=== PATIENT | female | born 1960 | race Caucasian/White ===

== ENCOUNTER 2020-11-14 09:59 | Emergency (ER) | payer OTHER, SELFPAY ==
--- NOTE | ~2020-11-14 | CT_ITS ---
EXAMINATION: CT ABDOMEN AND PELVIS WITH CONTRAST CLINICAL INFORMATION: Abdominal pain, diarrhea, rule out colitis COMPARISON: None TECHNIQUE: Multidetector volumetric images were obtained from the superior aspect of the liver through the pubic symphysis following administration 85 mL of Omnipaque 350 intravenous contrast. Sagittal and coronal reformatted images were obtained on the technologist's workstation. Oral contrast: No This CT examination was performed using dose optimization techniques as appropriate, variously including the following: *Automated exposure control *Adjustment of mA and/or kV according to patient size (this includes techniques or standardized protocols for targeted exams where dose is matched to indication/reason for exam; i.e. extremities or head) *Use of iterative reconstruction technique DLP: 621 mGy-cm FINDINGS: LUNG BASES: The visualized lung bases are unremarkable. Partial visualization of bilateral breast prostheses without abnormality. LIVER, GALLBLADDER, AND BILIARY TREE: Unremarkable. PANCREAS: Unremarkable. SPLEEN: Unremarkable. ADRENAL GLANDS: Unremarkable. KIDNEYS AND URETERS: The kidneys are normal in size, shape, and attenuation. No hydronephrosis, hydroureter, or calculi seen. No perinephric stranding. BLADDER: Unremarkable. GASTROINTESTINAL TRACT: The stomach, duodenum, jejunum as well as the proximal to mid ileum are unremarkable. Abnormal mural thickening is seen in the distal ileum extending into the terminal ileum. A hostess party sales representative loop shows mural thickening up to 0.8 cm (image 55, series 4). Mural thickening is seen in the terminal ileum just proximal to the ileocecal valve measuring 0.9 cm (image 40, series 4). Mild mural thickening extends into the adjacent cecum and ascending colon. This is seen to a lesser extent in the transverse colon. The remainder the colon is unremarkable distally to the rectum. ABDOMINAL WALL: No significant hernia is appreciated. LYMPH NODES: Mildly enlarged mesenteric and retroperitoneal lymph nodes are seen in hostess party sales representative ileocolic lymph node measures 1.1 cm (image 42, series 4). A superior mesenteric lymph node measures 0.9 cm in short axis (image 39, series 4). A left renal perinephric lymph node measures 0.9 cm in short axis (image 43, series 4). VASCULAR: Unremarkable. PELVIC VISCERA: The uterus and right ovary are unremarkable. A small fluid attenuation left ovarian cyst measures 1.1 cm (image 48, series 4). OSSEOUS STRUCTURES: L5-S1 mild degenerative disc disease. CT/CT abdomen pelvis w con IMPRESSION: No significant abnormality.
[2020-11-14 11:40] VITALS: BP 119/68; PULSE 104; RESP 18; TEMP 36.6; O2SAT 99; BMI 25.6
[2020-11-14 12:15] LABS: COVID-19 Test Negative (Negative); IDNOW Serial# 9DD0AD1C
--- NOTE | 2020-11-14 13:16 | ED.NAVMDI ---
HPI - Nausea/Vomiting/Diarrhea General Chief complaint: Nausea/Vomiting/Diarrhea Stated complaint: Flu like symptoms Time Seen by Provider: 11/14/20 13:16 Source: patient Mode of arrival: ambulatory Limitations: no limitations History of Present Illness MD elicited complaint: nausea, vomiting, diarrhea and abdominal pain Onset (ago): day(s) (7) Description of vomiting: food contents Associated nausea: Yes Associated abdominal pain: Yes Location of pain: diffuse Radiation: diffuse Pain consistency: intermittent Severity: mild Quality: cramping Exacerbating factors: eating Relieving factors: none Context: possible food poisoning Associated symptoms: fever/chills, loss of appetite, malaise, nausea/vomiting and weakness Related Data Previous Rx's Medication Instructions Recorded ondansetron 4 mg disintegrating 4 mg PO Q8H PRN #20 tab 11/14/20 tablet Allergies Allergy/AdvReac Type Severity Reaction Status Date / Time No Known Allergies Allergy Verified 11/14/20 11:39 Review of Systems Review of Systems: Constitutional : No Weight loss, pos Fever, pos Chills ENT/Mouth : No sore throat, No Rhinorrhea Eyes: No Swelling, No Redness Cardiovascular : No Chest Pain, No SOB, No Edema Respiratory : No Cough, No Sputum, No Wheezing Gastrointestinal : Positive Nausea, Positive Vomiting, positive Diarrhea, positive abdominal Pain, No Hematochezia, No Melena Genitourinary : No Dysuria, No Urinary Frequency, No Hematuria, No Urgency Musculoskeletal : No joint pain, No Myalgias, No Joint Swelling Skin : No Skin Lesions, No rash Neuro : No Weakness, No Numbness, No Dizziness, No Headache Psych : No Anxiety/Panic, No Depression Heme/Lymph: No Bruising, No Lymphadenopathy Endocrine : No Polyuria, No Polydipsia All other systems reviewed and are negative. Gastrointestinal: Gastrointestinal: Reports nausea PMFSH Past Medical History Attestation statement: The following information was validated with the patient. Medical History Afib Breast cancer FH: mastectomy Surgical History History of cardiac radiofrequency ablation Social History Social History (Updated 11/14/20 @ 13:47 by Judith Quinteros DO) Patient Tobacco Use Status: Never used Tobacco Use of substances other than those prescribed or required for medical reasons: No Advance Directives: Yes Advance Directives Information Provided: Yes Advance Directives on File: No Patient : No Physical Exam Vital Signs: Vital Signs: Last Vital Signs Temp 97.9 F 11/14/20 11:40 Pulse 104 H 11/14/20 11:40 Resp 18 11/14/20 11:40 BP 119/68 11/14/20 11:40 Pulse Ox 99 11/14/20 11:40 Body Mass Index 25.6 Appearance: Alert. Oriented X3. No acute distress. Eyes: Pupils equal, round and reactive to light. ENT: Pharynx normal. Neck: Normal inspection. Neck supple. CVS: Normal heart rate and rhythm. Pulses normal. Respiratory: No respiratory distress. Breath sounds normal. Abdomen: Soft and diffuse ttp no rebound or guarding Skin: Skin warm and dry. Normal skin color. Normal skin turgor. Extremities: No lower extremity edema. No calf ttp Neuro: Oriented X 3. No motor deficit. No sensory deficit. Course Course Course Narrative: labs stable, CT scan negative, tolerating PO can be DC home MDM - Nausea/Vomiting/Diarrhea MDM Narrative Medical decision making narrative: 60 yo female prior history of breast cancer in remission comes in with c/o abdominal pain n/v/d no abx did eat seafood recently no sick contact, no hx of colitis at this time lab, IVF, CT scan for colitis ordered, dispo per results and findings. Lab Data Result diagrams: 11/14/20 13:31 11/14/20 13:31 Labs: Lab Results 11/14/20 11/14/20 11/14/20 Range/Units 11:46 13:31 13:31 WBC 7.3 (4.8-10.8) X10*3/uL RBC 5.08 (4.20-5.50) X10*6/uL Hgb 14.3 (12.0-16.0) g/dl Hct 43.3 (37-47) % MCV 85.2 (80-98) fL MCH 28.1 (27.0-33.0) pg MCHC 33.0 (31.0-35.0) g/dl RDW 12.4 (11.0-16.0) % Plt Count 243 (160-400) X10*3/uL MPV 10.7 (9.4-12.3) fL Immature Gran % (Auto) 0.7 H (0.0-0.4) % Neut % (Auto) 55.9 (45-73) % Lymph % (Auto) 27.7 (20-40) % [place] % (Auto) 14.9 H (2-11) % Eos % (Auto) 0.3 (0-4) % Baso % (Auto) 0.5 (0-2) % Lymph # (Auto) 2.0 (1.2-4.9) X10*3/uL [place] # (Auto) 1.1 (0.1-1.2) X10*3/uL Eos # (Auto) 0.0 (0.0-0.4) X10*3/uL Baso # (Auto) 0.0 (0.0-0.2) X10*3/uL Abs Immat Gran (auto) 0.05 H (0.00-0.03) X10*3/uL Absolute Neuts (auto) 4.1 (2.0-8.3) X10*3/uL Absolute Nucleated RBC 0.000 (0.0-0.012) X10*3/uL Nucleated RBC % (auto) 0.0 (0.0-0.2) /100WBC Sodium 137 (135-145) mmol/L Potassium 4.5 (3.3-5.1) mmol/L Chloride 102 (96-108) mmol/L Carbon Dioxide 24 (22-29) mmol/L Anion Gap 16 (12-20) BUN 13 (9-16) mg/dL Creatinine 0.73 (0.5-1.4) mg/dL Estim Creat Clear Calc 71.7 Estimated GFR > 60 Random Glucose 94 (60-115) mg/dL Lactic Acid (0.5-2.0) mmol/L Calcium 10.0 (8.4-10.2) mg/dL Magnesium 2.3 (1.6-2.6) mg/dL Total Bilirubin 0.4 (0.0-1.0) mg/dL Direct Bilirubin 0.2 (0.0-0.5) mg/dL AST 15 (5-31) U/L ALT 16 (0-31) U/L Alkaline Phosphatase 55 (39-117) U/L Total Protein 7.0 (6.5-8.0) g/dL Albumin 4.0 (3.5-5.0) g/dL Lipase 67 (8-78) U/L Urine Color Urine Appearance Urine pH (5.0-8.0) Ur Specific [place] (1.005-1.025) Urine Protein (NEG-TRACE) MG/DL Urine Glucose (UA) (NEG) MG/DL Urine Ketones (NEG) MG/DL Urine Blood (NEG) Urine Nitrite (NEG) Ur Leukocyte Esterase (NEG) COVID-19 (TWAN) Negative (Negative) COVID-19 Clin Com See Note 11/14/20 11/14/20 Range/Units 13:31 14:13 WBC (4.8-10.8) X10*3/uL RBC (4.20-5.50) X10*6/uL Hgb (12.0-16.0) g/dl Hct (37-47) % MCV (80-98) fL MCH (27.0-33.0) pg MCHC (31.0-35.0) g/dl RDW (11.0-16.0) % Plt Count (160-400) X10*3/uL MPV (9.4-12.3) fL Immature Gran % (Auto) (0.0-0.4) % Neut % (Auto) (45-73) % Lymph % (Auto) (20-40) % [place] % (Auto) (2-11) % Eos % (Auto) (0-4) % Baso % (Auto) (0-2) % Lymph # (Auto) (1.2-4.9) X10*3/uL [place] # (Auto) (0.1-1.2) X10*3/uL Eos # (Auto) (0.0-0.4) X10*3/uL Baso # (Auto) (0.0-0.2) X10*3/uL Abs Immat Gran (auto) (0.00-0.03) X10*3/uL Absolute Neuts (auto) (2.0-8.3) X10*3/uL Absolute Nucleated RBC (0.0-0.012) X10*3/uL Nucleated RBC % (auto) (0.0-0.2) /100WBC Sodium (135-145) mmol/L Potassium (3.3-5.1) mmol/L Chloride (96-108) mmol/L Carbon Dioxide (22-29) mmol/L Anion Gap (12-20) BUN (9-16) mg/dL Creatinine (0.5-1.4) mg/dL Estim Creat Clear Calc Estimated GFR Random Glucose (60-115) mg/dL Lactic Acid 1.8 (0.5-2.0) mmol/L Calcium (8.4-10.2) mg/dL Magnesium (1.6-2.6) mg/dL Total Bilirubin (0.0-1.0) mg/dL Direct Bilirubin (0.0-0.5) mg/dL AST (5-31) U/L ALT (0-31) U/L Alkaline Phosphatase (39-117) U/L Total Protein (6.5-8.0) g/dL Albumin (3.5-5.0) g/dL Lipase (8-78) U/L Urine Color YELLOW Urine Appearance CLEAR Urine pH 6.0 (5.0-8.0) Ur Specific [place] 1.020 (1.005-1.025) Urine Protein NEG (NEG-TRACE) MG/DL Urine Glucose (UA) NEG (NEG) MG/DL Urine Ketones 5 (NEG) MG/DL Urine Blood NEG (NEG) Urine Nitrite NEG (NEG) Ur Leukocyte Esterase NEG (NEG) COVID-19 (TWAN) (Negative) COVID-19 Clin Com Discharge Plan Discharge Clinical Impression: Diarrhea Qualifiers: Diarrhea type: unspecified type Qualified Code(s): R19.7 - Diarrhea, unspecified Patient Disposition: Home, Self-Care Instructions: Loperamide (By mouth), Acute Diarrhea (ED) Additional Instructions: return to ED for any worsening symptoms or concerns LYMPH NODES: Mildly enlarged mesenteric and retroperitoneal lymph nodes are seen in sales representative cash registers ileocolic lymph node measures 1.1 cm (image 42, series 4). A superior mesenteric lymph node measures 0.9 cm in short axis (image 39, series 4). A left renal perinephric lymph node measures 0.9 cm in short axis (image 43, series 4). VASCULAR: Unremarkable. PELVIC VISCERA: The uterus and right ovary are unremarkable. A small fluid attenuation left ovarian cyst measures 1.1 cm (image 48, series 4).? OSSEOUS STRUCTURES: L5-S1 mild degenerative disc disease.? CT/CT abdomen pelvis w con IMPRESSION: No significant abnormality. ? COVID NEGATIVE LABS normal urine normal it is okay to take immodium Prescriptions: New ondansetron 4 mg tablet,disintegrating 4 mg PO Q8H PRN (Reason: nausea and vomiting) Qty: 20 RF: 0 Referrals: Physician,Unknown [Primary Care Provider] - 2 days (if not better call primary care doctor may need stool studies) Stand Alone Forms: Work/School Release Interventions: ED Discharge Assessment Last Done: 11/14/20 16:01 Discharge Date/Time: 11/14/20 16:03
[2020-11-14 13:39] LABS: MANUAL DIFF FLAG NO
[2020-11-14 13:41] LABS: Basophils Percent Auto 0.5 % (0-2); Eosinophils Percent Auto 0.3 % (0-4); Hematocrit 43.3 % (37-47); Hemoglobin 14.3 g/dl (12.0-16.0); Imm Gran Abs Auto 0.05 X10*3/uL (0.00-0.03); Imm Gran Pct Auto 0.7 % (0.0-0.4); Lymphocytes Percent Auto 27.7 % (20-40); Mean Corpuscular Hemoglobin 28.1 pg (27.0-33.0); Mean Corpuscular Volume 85.2 fL (80-98); Mean Platelet Volume 10.7 fL (9.4-12.3); Monocytes Absolute Auto 1.1 X10*3/uL (0.1-1.2); Monocytes Percent Auto 14.9 % (2-11); Neutrophils Absolute Auto 4.1 X10*3/uL (2.0-8.3); Neutrophils Percent Auto 55.9 % (45-73); Platelet Count 243 X10*3/uL (160-400); Red Blood Count 5.08 X10*6/uL (4.20-5.50); Red Cell Distribution Width 12.4 % (11.0-16.0); White Blood Count 7.3 X10*3/uL (4.8-10.8)
[2020-11-14 13:57] LABS: Lactic Acid 1.8 mmol/L (0.5-2.0)
[2020-11-14 14:04] LABS: Alanine Aminotransferase 16 U/L (0-31); Alkaline Phosphatase 55 U/L (39-117); Anion Gap 16 (12-20); Aspartate Amino Transferase 15 U/L (5-31); Bilirubin Direct 0.2 mg/dL (0.0-0.5); Bilirubin Total 0.4 mg/dL (0.0-1.0); Blood Urea Nitrogen 13 mg/dL (9-16); Carbon Dioxide 24 mmol/L (22-29); Chloride 102 mmol/L (96-108); Creatinine Clr Calc Pharmacy 71.7; Estimated Glomerular Filt Rate > 60; Glucose Random 94 mg/dL (60-115); Lipase 67 U/L (8-78); Magnesium 2.3 mg/dL (1.6-2.6); Potassium 4.5 mmol/L (3.3-5.1); Sodium 137 mmol/L (135-145)
[2020-11-14] MEDS: 0.9 % Sodium Chloride 1,000 ML 999 ML IVCONT (14:15)
[2020-11-14] MEDS: ondansetron HCL 4 MG/2 ML VIAL IVPUSH (14:18)
[2020-11-14 14:24] LABS: Glucose Urine UA NEG (NEG); Leukocyte Esterase Urine NEG (NEG); Nitrite Urine NEG (NEG); Urine Blood NEG (NEG); Urine Ketones 5 MG/DL (NEG); Urine Protein NEG (NEG-TRACE)
[2020-11-14 14:28] LABS: Appearance Urine CLEAR; Color Urine YELLOW
[2020-11-14] MEDS: iohexoL 350 MG/ML 100 ML INFUS..BTL IV (14:42)
== END 2020-11-14 16:03 | disposition home or self-care (01) ==
PROVIDERS: Emergency Provider Emergency Medicine
DX: R19.7 Diarrhea, unspecified (principal); Z20.822 Contact with and (suspected) exposure to COVID-19; I48.91 Unspecified atrial fibrillation; Z85.3 Personal history of malignant neoplasm of breast
CPT/HCPCS: 36415; 74177; 80048; 80076; 81003; 83605; 83690; 83735; 85025; 87040; 87635; 96361; 96374; 99283; 99284; J2405; Q9967

== ENCOUNTER 2021-12-24 09:56 | Emergency (ER) | payer OTHER, SELFPAY ==
--- NOTE | ~2021-12-24 | XR_ITS ---
EXAMINATION: XR CHEST CLINICAL INFORMATION: Chest pressure COMPARISON: None TECHNIQUE: 2 views of the chest were obtained. FINDINGS: No significant abnormality is noted involving the heart, lungs, mediastinum, bony thorax or soft tissues. XR/XR chest 2V IMPRESSION: Unremarkable chest exam.
--- NOTE | 2021-12-24 10:04 | ECG_ITS ---
Test Reason : chest pressure Blood Pressure : / mmHG Vent. Rate : 087 BPM Atrial Rate : 087 BPM P-R Int : 142 ms QRS Dur : 070 ms QT Int : 356 ms P-R-T Axes : 040 030 036 degrees QTc Int : 428 ms Normal sinus rhythm Normal ECG No previous ECGs available Referred By: Generic ED Physician Electronically Signed By:SRAAH SHERMAN
[2021-12-24 10:11] VITALS: BP 139/77; PULSE 99; RESP 16; TEMP 36.6; O2SAT 98; BMI 26.3
[2021-12-24 10:32] LABS: Basophils Absolute Auto 0.1 X10*3/uL (0.0-0.2); Basophils Percent Auto 0.8 % (0-2); Eosinophils Percent Auto 0.4 % (0-4); Hematocrit 43.4 % (37.0-47.0); Hemoglobin 14.2 g/dl (12.0-16.0); Imm Gran Abs Auto 0.03 X10*3/uL (0.00-0.03); Imm Gran Pct Auto 0.3 % (0.0-0.4); Lymphocytes Absolute Auto 2.4 X10*3/uL (1.2-4.9); Lymphocytes Percent Auto 27.1 % (20-40); MANUAL DIFF FLAG NO; Mean Corpuscular HGB Conc 32.7 g/dl (31.0-35.0); Mean Corpuscular Hemoglobin 28.3 pg (27.0-33.0); Mean Corpuscular Volume 86.6 fL (80.0-98.0); Mean Platelet Volume 10.4 fL (9.4-12.3); Monocytes Absolute Auto 0.5 X10*3/uL (0.1-1.2); Neutrophils Absolute Auto 5.9 x10*3/uL (2.0-8.3); Neutrophils Percent Auto 65.4 % (45-73); Platelet Count 267 X10*3/uL (160-400); Red Blood Count 5.01 X10*6/uL (4.20-5.50); Red Cell Distribution Width 12.7 % (11.0-16.0)
[2021-12-24 10:50] LABS: Troponin-I High Sensitivity < 3.5 ng/L (<3.5-17.0)
[2021-12-24 10:51] LABS: Anion Gap 14 (12-20); Blood Urea Nitrogen 19 mg/dL (9-16); Calcium 9.9 mg/dL (8.4-10.2); Carbon Dioxide 23 mmol/L (22-29); Chloride 106 mmol/L (96-108); Creatinine Clr Calc Pharmacy 71.7; Estimated Glomerular Filt Rate > 60; Glucose Random 107 mg/dL (60-115); Potassium 4.8 mmol/L (3.3-5.1); Sodium 138 mmol/L (135-145)
[2021-12-24 15:24] LABS: Troponin-I High Sensitivity < 3.5 ng/L (<3.5-17.0)
--- NOTE | 2021-12-24 15:38 | ED_ITS ---
HPI - Chest Pain General Chief Complaint: Chest Pain Stated Complaint: Chest pressure/Weakness in legs Time Seen by Provider: 12/24/21 10:59 Source: patient Mode of arrival: ambulatory Limitations: no limitations History of Present Illness HPI narrative: This is a 61-year-old female past medical history significant for atrial fibrillation s/p ablation years ago presenting to the emergency department with complaints of substernal chest pressure, nonradiating and palpitations have been occurring intermittently over the past month. Patient tells me that she visited her primary care provider's office, voice these concerns and they encouraged her to come to the emergency department for further evaluation and treatment as necessary. Offers no other complaints. Patient tells me she thinks these symptoms are secondary to anxiety and increasing life stressors. Patient denies shortness of breath, fevers, chills, nausea, vomiting, abdominal pain, headache, dizziness and vision changes. Patient denies recent travel, patient not a smoker, patient not on blood thinners, patient not on Related Data Previous Rx's Medication Instructions Recorded ondansetron 4 mg disintegrating 4 mg PO Q8H PRN nausea and 11/14/20 tablet vomiting #20 tabs Allergies Allergy/AdvReac Type Severity Reaction Status Date / Time No Known Allergies Allergy Verified 11/14/20 11:39 Review of Systems Review of Systems: Constitutional : No Weight loss, No Fever, No Chills, No Fatigue, No Malaise ENT/Mouth : No sore throat, No Rhinorrhea Eyes: No Eye Pain, No Swelling, No Redness Cardiovascular : + Chest Pain, No SOB, No Dyspnea on Exertion, No Orthopnea, No Edema, No Palpitations Respiratory : No Cough, No Sputum, No Wheezing Gastrointestinal : No Nausea, No Vomiting, No Diarrhea, No Constipation, No abdominal Pain, No Hematochezia, No Melena Genitourinary : No Dysuria, No Urinary Frequency, No Hematuria, Musculoskeletal : No joint pain, No Myalgias, No Joint Swelling Skin : No Skin Lesions, No rash Neuro : No Weakness, No Numbness, No Dizziness, No Headache Psych : No Anxiety/Panic, No Depression All other systems reviewed and are negative Yes all other systems are reviewed and are negative PMFSH Past Medical History Attestation statement: The following information was validated with the patient. Source: old records reviewed and nursing notes reviewed Medical History Afib Breast cancer FH: mastectomy Surgical History History of cardiac radiofrequency ablation Social History Social History Patient Tobacco Use Status: Never used Tobacco Advance Directives: Yes Advance Directives Information Provided: Yes Advance Directives on File: No Physical Exam Vital Signs: Vital Signs: Last Vital Signs Temp 98.0 F 12/24/21 15:42 Pulse 77 12/24/21 15:42 Resp 15 12/24/21 15:42 BP 136/62 12/24/21 15:42 Pulse Ox 97 12/24/21 15:42 O2 Del Method 12/24/21 15:42 BMI result Body Mass Index 26.3 Vital signs stable Appearance: Alert.? Oriented X3.? No acute distress.? Head: Normocephalic, atraumatic, no step-offs or deformities Eyes: Pupils equal, round and reactive to light.? ENT: Pharynx normal.? Neck: Normal inspection.? Neck supple.? CVS: Normal heart rate and rhythm.? Pulses normal.? Respiratory: No respiratory distress.? Breath sounds normal.? Abdomen: Soft and nontender.? Skin: Skin warm and dry.? Normal skin color.? Normal skin turgor.? Extremities: No lower extremity edema.? No calf ttp. 5/5 strength to bilateral upper and lower extremities Back: No midline tenderness, no C-spine tenderness, full range of motion, no CVA tenderness bilaterally Neuro: Oriented X 3.? No motor deficit.? No sensory deficit. CN 2-12 intact Course Reevaluation(s) Reevaluation #1: CBC within normal limits. Chemisty with no acute findings. Trop negative X2 ekg non ischemic, unlikley acs. CXR normal. Dimer pending Time: 15:50 Reevaluation #2: Patient refusing dimer, techs and nursing staff tried patient adamantly refusing. Patient requesting to leave, she would not like any further laboratory studies, or intervention. Staff explained to her that she would be leaving against medical advice as I cannot rule out pulmonary embolism. Patient verbalizes understanding, was educated on risk versus benefits, outlined them on her discharge, at this time patient will be discharged home advised to return with new or worsening symptoms or if she changes her mind. Time: 16:59 MDM - Chest Pain MDM Narrative Medical decision making narrative: 1540 61-year-old female presenting with substernal chest pressure and palpitations times a month. Physical examination benign. Plan at this time is to obtain basic labs, EKG, chest x-ray. Unlikely ACS, PE. Likely anxiety or non cardiac related chest pain Medical Records Data Attestation: I reviewed the patient's medical records. Lab Data Attestation: I reviewed the patient's lab results. Result diagrams: 12/24/21 10:18 12/24/21 10:18 Labs: Lab Results 12/24/21 12/24/21 12/24/21 Range/Units 10:18 10:18 10:18 WBC 9.0 (4.8-10.8) X10*3/uL RBC 5.01 (4.20-5.50) X10*6/uL Hgb 14.2 (12.0-16.0) g/dl Hct 43.4 (37.0-47.0) % MCV 86.6 (80.0-98.0) fL MCH 28.3 (27.0-33.0) pg MCHC 32.7 (31.0-35.0) g/dl RDW 12.7 (11.0-16.0) % Plt Count 267 (160-400) X10*3/uL MPV 10.4 (9.4-12.3) fL Immature Gran % (Auto) 0.3 (0.0-0.4) % Neut % (Auto) 65.4 (45-73) % Lymph % (Auto) 27.1 (20-40) % [place] % (Auto) 6.0 (2-11) % Eos % (Auto) 0.4 (0-4) % Baso % (Auto) 0.8 (0-2) % Lymph # (Auto) 2.4 (1.2-4.9) X10*3/uL [place] # (Auto) 0.5 (0.1-1.2) X10*3/uL Eos # (Auto) 0.0 (0.0-0.4) X10*3/uL Baso # (Auto) 0.1 (0.0-0.2) X10*3/uL Abs Immat Gran (auto) 0.03 (0.00-0.03) X10*3/uL Absolute Neuts (auto) 5.9 (2.0-8.3) x10*3/uL Absolute Nucleated RBC 0.000 (0.0-0.012) X10*3/uL Nucleated RBC % (auto) 0.0 (0.0-0.2) /100WBC Sodium 138 (135-145) mmol/L Potassium 4.8 (3.3-5.1) mmol/L Chloride 106 (96-108) mmol/L Carbon Dioxide 23 (22-29) mmol/L Anion Gap 14 (12-20) BUN 19 H (9-16) mg/dL Creatinine 0.73 (0.5-1.4) mg/dL Estim Creat Clear Calc 71.7 Estimated GFR > 60 Random Glucose 107 (60-115) mg/dL Calcium 9.9 (8.4-10.2) mg/dL Troponin I High Sens < 3.5 (<3.5-17.0) ng/L 12/24/21 Range/Units 14:51 WBC (4.8-10.8) X10*3/uL RBC (4.20-5.50) X10*6/uL Hgb (12.0-16.0) g/dl Hct (37.0-47.0) % MCV (80.0-98.0) fL MCH (27.0-33.0) pg MCHC (31.0-35.0) g/dl RDW (11.0-16.0) % Plt Count (160-400) X10*3/uL MPV (9.4-12.3) fL Immature Gran % (Auto) (0.0-0.4) % Neut % (Auto) (45-73) % Lymph % (Auto) (20-40) % [place] % (Auto) (2-11) % Eos % (Auto) (0-4) % Baso % (Auto) (0-2) % Lymph # (Auto) (1.2-4.9) X10*3/uL [place] # (Auto) (0.1-1.2) X10*3/uL Eos # (Auto) (0.0-0.4) X10*3/uL Baso # (Auto) (0.0-0.2) X10*3/uL Abs Immat Gran (auto) (0.00-0.03) X10*3/uL Absolute Neuts (auto) (2.0-8.3) x10*3/uL Absolute Nucleated RBC (0.0-0.012) X10*3/uL Nucleated RBC % (auto) (0.0-0.2) /100WBC Sodium (135-145) mmol/L Potassium (3.3-5.1) mmol/L Chloride (96-108) mmol/L Carbon Dioxide (22-29) mmol/L Anion Gap (12-20) BUN (9-16) mg/dL Creatinine (0.5-1.4) mg/dL Estim Creat Clear Calc Estimated GFR Random Glucose (60-115) mg/dL Calcium (8.4-10.2) mg/dL Troponin I High Sens < 3.5 (<3.5-17.0) ng/L ECG Data ECG #1: Attestation: I personally reviewed and interpreted this ECG as follows: ECG interpretation date: 12/24/21 ECG interpretation time: 15:44 Prior ECG tracings: available for review Interpretation: Ventricular rate of 87, UT normal, QRS normal, QT/QTC normal. EKG with normal sinus rhythm, no ST elevations or inversions concerning for ischemia. No previous EKGs to compare with. Critical Care Time Critical Care Time Critical Care Time: No Discharge Plan Discharge Clinical Impression: Chest pain not due to acute coronary syndrome, Anxiety, Left against medical advice Patient Disposition: Home, Self-Care Instructions: Chest Pain (ED) Additional Instructions: Take your medications as prescribed. If you were prescribed antibiotics today, it is important that you take your medication to their entirety, do not skip any doses, do not finish them early. Follow-up with your primary care provider this week. Follow-up with Cardiology, information below, it is likely that you may require a Holter monitor for fu rther evaluation. Return to the emergency department with new or worsening symptoms. Such as fevers, chills, chest pain, shortness of breath, nausea, vomiting, dizziness, headache, vision changes, lethargy In case of emergency call 911 You decided to leave against medical advice risks include decreased quality of life, worsening symptoms, missed diagnoses, stroke, , infection, sepsis, need for possible admission. Prescriptions: No Action ondansetron 4 mg tablet,disintegrating 4 mg PO Q8H PRN (Reason: nausea and vomiting) Qty: 20 0RF Referrals: Gene Quan MD [Physician] - 2 days Physician,Lidia J [Primary Care Provider] - 2 days Stand Alone Forms: Work/School Release, Against Medical Advice
[2021-12-24 15:42] VITALS: BP 136/62; PULSE 77; RESP 15; TEMP 36.7; O2SAT 97
--- NOTE | 2021-12-24 15:43 | PC.NURSE ---
assumed care of patient at this time ,patient was put on director of cardiac rehabilitation and vitals sign taken ,patient resting in bed .
--- NOTE | 2021-12-24 17:00 | PC.NURSE ---
PATIENT REFUSED BLUE TOP TO BE DRAWN ,PATIENT STATES SHE JUST WANT TO GO HOME . ,PROVIDER HECTRO IS AWARE .
[2021-12-24 17:28] VITALS: BP 134/71; PULSE 82; RESP 17; O2SAT 98
== END 2021-12-24 17:29 | disposition home or self-care (01) ==
PROVIDERS: Emergency Provider Emergency Medicine
DX: R07.89 Other chest pain (principal); F41.9 Anxiety disorder, unspecified; I48.91 Unspecified atrial fibrillation
CPT/HCPCS: 36415; 71046; 80048; 84484; 85025; 93005; 99283; 99284

== ENCOUNTER 2025-03-03 | Outpatient (REF) | payer OTHER, SELFPAY ==
[2025-03-04 13:14] LABS: Resp Syncy Virus RNA Qual PCR NEGATIVE (Negative); SARS COV2 PCR INHOUSE NEGATIVE (Negative)
--- OUTSIDE RECORDS SUMMARY | 2025-03-04 17:55 | XMS_ITS | Clinical Summary ---
Author Organization [facility] [address] [place] [address] Address [address] [place], [place] Phone Care Team Providers Care Rubber Turner Name Role Phone Cody Roque MD Primary [...] 3:45 PM EDT Office Visit Adult Medicine [address] [phone] Cody Roque MD Mixed hyperlipidemia (Primary Dx); Prediabetes; Recurrent UTI; Screening for colorectal cancer 12/06/2024 1:30 PM EDT Procedure visit Obstetrics [facility]necology - [facility] [address] [place] [address] Deneen Ochoa, Papanicolaou smear of cervix with [...] cancer with revision 2014 BREAST SURGERY PROCEDURE: ND UNLISTED PROCEDURE BREAST; COMMENT: MAST ON LT -IMPLANT PLCED ON RT. OTHER SURGICAL HISTORY 08/2016 PROCEDURE: ND ANES CARDIAC ELECTROPHYSIOL STDY W/RF ABLATION CERVICAL BIOPSY W/ LOOP ELECTRODE EXCISION 08/27/2019 PROCEDURE: ND CONIZATION CERVIX W/WO D&C RPR ELTRD EXC; [...] care for your loved ones. For example, director child development center or elderly care for an older adult? [...] 4:00 PM EDT Office Visit Adult Medicine [address] [phone] Cody Roque MD [address] [place] [address] Health Maintenance Due Date Last Done Comments [...] Procedure Name Priority Date/Time Associated Diagnosis Comments ND COLPOSCOPY CERVIX Routine 12/06/2024 1:43 PM EDT [...] Recently Relevant to Health Maintenance Results * ND COLPOSCOPY CERVIX (12/06/2024 1:43 PM EDT) Deneen [...] Not indicated Prepped with: acetic acid Procedure: Cambridge speculum was placed in the vagina: yes [...] LAB CHEMISTRY METHOD 10/26/2024 12:00 PM EDT [facility] Triglycerides 74 0 - 150 mg/dL LAB CHEMISTRY METHOD 10/26/2024 12:00 PM EDT [facility] HDL 77 >=40 mg/dL LAB CHEMISTRY METHOD 10/26/2024 12:00 PM EDT [facility] LDL Calculated 118(H) 0 - 100 mg/dL LAB CHEMISTRY METHOD 10/26/2024 12:00 PM EDT [facility] Comment:Estimated LDL Calcul ated using equation: Total cholesterol - HDL cholesterol - (Triglycerides/5) VLDL Cholesterol Denilson 14.8 mg/dL LAB CHEMISTRY METHOD 10/26/2024 12:00 PM EDT [facility] Non HDL Chol. (LDL+VLDL) 133 <145 mg/dL LAB CHEMISTRY METHOD 10/26/2024 12:00 PM EDT [facility] Chol/HDL Ratio 2.7 0.0 - 4.4 LAB CHEMISTRY METHOD 10/26/2024 12:00 PM EDT [facility] Blood Venous blood specimen / Unknown Venipuncture / Unknown 10/26/2024 8:18 AM EDT 10/26/2024 8:18 AM EDT Yane WAGONER LAB BLOOD ORDERABLES Fin al Result [facility] [address] [place] [address], * (ABNORMAL) HPV with reflex genotype (06/16/2024 4:26 PM EDT) HPV Positive( A) Negative LAB MICROBIOLOGY METHOD 06/21/2024 2:15 PM EDT [facility] Brushing/Spatula Cervix uteri structure / Unknown 06/16/2024 4:26 PM EDT 06/18/2024 7:23 AM EDT Marva Chowdhury CNM LAB MOLECULAR DIAGNOSTICS YANNI CESPEDES Final Result [facility] [address] [place] [address], [place] [phone] * MG Mammo Digital Screening w [place] [...] Signed Date: 04/21/2024 09:43 ET Workstation ID: [id number] Transcribed By: Self Edit Transcribed Date: 04/21/2024 [...] displacement. Computer-aided detection was employed with the [employer] AI 3-D. TISSUE DENSITY: There are scattered [...] Signed Date: 04/21/2024 09:43 ET Workstation ID: [id number] Transcribed By: Self Edit Transcribed Date: 04/21/2024 09:32 ET [facility] BI PROCEDURES Final Result from Last 3 Months or Most Recently Relevant to Health Maintenance Insurance [facility] Care Teams Rubber Turner Relationship Specialty Start Date End Date Cody Roque MD [address] [place] [address] PCP - General Internal Medicine 06/14/21
--- OUTSIDE RECORDS SUMMARY | 2025-03-04 17:55 | XMS_ITS | Clinical Summary ---
Author Organization [facility] Prior to 08/21/[address] [place] [address] Care Team Providers Care Engine Repairer Name Role Phone Nithya Parry MD Primary Care Provider +1- [phone] Allergies No known active allergies Medications Medication [...] age to complete this topic Care Teams Engine Repairer Relationship Specialty Start Date End Date Nithya Parry MD PCP - General Internal Medicine 09/23/16
--- OUTSIDE RECORDS SUMMARY | 2025-03-04 17:55 | XMS_ITS | Clinical Summary ---
Author Organization [facility] Address [address] [place] [address] Phone Care Team Providers Care Microbiology Technician Name Role Phone Unknown, Unknown Primary Care [...] Medical Devices Not on file Care Teams Microbiology Technician Relationship Specialty Start Date End Date Unknown, Unknown, PCP - General 07/29/14 Additional Source Comments The information contained in this document represents components of the legal health record. It is not the complete legal health record.[facility]
== END 2025-03-03 00:01 | disposition home or self-care (01) ==
LOC: HO.LNP
PROVIDERS: Visit Provider Physician Assistant Medical
DX: Z03.818 Encounter for observation for suspected exposure to other biological agents ruled out (principal); R09.89 Other specified symptoms and signs involving the circulatory and respiratory systems
CPT/HCPCS: 87637

== ENCOUNTER 2025-03-03 15:31 | Outpatient (AMB) | payer OTHER, SELFPAY ==
[2025-03-03 15:32] VITALS: BP 120/70; PULSE 108; TEMP 37.4; O2SAT 98; BMI 27.4
--- NOTE | 2025-03-03 15:32 | AM.OFFWIN_ITS ---
Intake Vital Signs 03/03/25 15:32 Height 5 ft 2 in Weight 150 lb BMI 27.4 BP 120/70 Blood Pressure Location Rt brachial Position Sitting Pulse 108 H Pulse Source Pulse Oximeter Temp 99.3 F Temp Source Oral Pulse Oximetry (%) 98 Oxygen Delivery Method Room Air Intake Visit Reasons: EP Cold symptoms Intake Note: pt presents with chest congestion and productive coughing, chest discomfort/pressure, sinus congestion, throat feels raw. states she returned from [facility] 02/19 and that there's a new strain of Flu A in [facility]. Patient Tobacco Use Status: Never used Tobacco Allergies No Known Allergies Allergy (Verified 03/03/25 15:41) Do you need a note to return to daycare/school/sports/work: Yes HPI HPI Comments History of Present Illness Details History - The patient is a 64-year-old female pr esenting with worsening respiratory symptoms. - She reports that her symptoms began af ter returning from [facility] on the . - Initially, she experienced a sore thro at, clear mucus, and a cough, which worsened significantly on Friday. - The cough progressed to a barking connie acter with associated green, thick phlegm and hemoptysis and the development of chest pains. - She has a sore throat and it hurts to swallow, which has improved. - She has no history of asthma and repor ts no medication allergies. - Her family in [facility] has similar sym ptoms and she was exposed to flu A. - She has been eating and drinking. - She denies smoking. - She denies abd pain, n/v/d, dizziness, or headache. Physical Exam General: Cooperative, healthy appearing, comfortable and no acute distress Orientation/consciousness: Patient oriented x3 Limitations: No limitations Head: Normal to inspection Ears: Hearing grossly normal bilaterally, external ears normal and TM's normal bilaterally Nose: Normal external nose present, normal nares present, and no nasal discharge present. Face and sinus: Sinuses nontender to palpation. Mouth: Normal oral and palatal mucosa present and moist mucous membranes noted. Throat: Tonsils normal. Uvula is midline. Posterior oropharynx with erythema and no exudates. Eyes: Appearance normal, both eyes and all related structures Neck: Normal visual inspection, full ROM. No lymphadenopathy noted. Respiratory: Clear to auscultation bilaterally. Normal respiratory effort, able to speak in complete sentences. No respiratory distress, not tachypneic, no tripod positioning and no use of accessory muscles. Cardiovascular: Regular rate and rhythm. Normal S1 and S2. Skin: No rashes or lesions noted Patient was informed and verbally consented to the use of an ambient scribe for clinic note documentation during this visit [facility] Medical History Afib Breast cancer FH: mastectomy Surgical History History of cardiac radiofrequency ablation Social History Patient Tobacco Use Status: Never used Tobacco Review of Systems Const All systems reviewed & are unremarkable except as noted in HPI and below Physical Exam Vital Signs: Last Vital Signs Temp 99.3 F 03/03/25 15:32 Pulse 108 H 03/03/25 15:32 BP 120/70 03/03/25 15:32 Pulse Ox 98 03/03/25 15:32 Oxygen Delivery Method Room Air 03/03/25 15:32 BMI result Body Mass Index 27.4 Results AMB Rapid Strep AMB Rapid Strep Negative Last Edit by Luz Elena Mendoza CMA on 03/03/25 15:5 1 Results Reviewed Results Reviewed: Laboratory Last Values Strep Scn Rapid Clinic Negative 03/03/25 15:47 will review the cxr in the office Assessment & Plan Assessment & Plan (1) Cough: Code(s): R05.9 - Cough, unspecified Qualifiers: Cough type: acute Qualified Code(s): R05.1 - Acute cough Plan Most likely Acute Upper Respiratory Infection vs bronchitis vs CAP vs covid vs flu vs RSV rapid was negative plan - Plan includes prescribing a Z-Carl, a cough medicine, prednisone, and an inh aler. - will order a covid/flu/RSV swab in the office today - A chest X-ray was ordered, and the patient will be called with the results. - The patient was advised to take tylenol or motrin as needed. - follow up with PCP Orders: Orders XR chest 2V Today R05.9 - Cough, unspecified AMB Rapid Strep Screen Today Z13.9 - Encounter for screening, unspecified SARS-CoV2/FLU/RSV Today R09.89 - Other specified symptoms and signs involving the circulatory and respiratory systems Medications: New prednisone 40 mg (2 x 20 mg) PO DAILY 10 tabs 0RF 5 days azithromycin For 250 mg dose pack: take 500 mg today (day 1), then 250 mg for 4 days (days 2-5) PO 6 tabs 0RF benzonatate 100 mg PO bid-tid PRN 21 caps 0RF Cough 7 days albuterol sulfate 90 mcg/actuation 2 puffs inhalation Q6H PRN 8.5 grams 0RF shortness of breath or wheezing or cough Discontinued ondansetron Discontinued Reason: Patient Completed Course 4 mg PO Q8H PRN 20 tabs 0RF nausea and vomiting Coding Level of Care Code Est Pt Level 4 (29778) Diagnoses Acute cough R05.1 Cough type: acute
--- OUTSIDE RECORDS SUMMARY | 2025-03-03 23:02 | XMS_ITS ---
Author Name [facility] Organization Unknown Care Team Organization Name Specialty Phone Email Start Date End Da te [facility] Cody Roque Primary Care 06/25/202210/22 [facility] Termed, PROVIDER Primary Care 01/29/202210/22
--- OUTSIDE RECORDS SUMMARY | 2025-03-03 23:02 | XMS_ITS | Clinical Summary ---
Author Organization [facility] [address] [place] [address] Address [address], [place] Phone Care Team Providers Care Surplus Property Disposal Agent Name Role Phone Cody Roque MD Primary Care Provider Allergies No known active allergies Medications calcium carbonate-vitami n D 500 mg-5 mcg (200 unit) per tablet Take 1 tablet by mouth 1 (one) time each day. 90 tablet 1 02/05/2024 Active Active Problems Problem Noted Date Diagnosed Date Mixed hyperlipidemia 01/18/2025 Prediabetes 01/18/2025 Breast pain 10/09/2018 Overview (02/05/2024): Last Assessment & Plan: Given history of breast cancer and history of severe pain in the right lower breast with US showing inflammation, I recommended follow up US of right breast to ensure no obvious cause of inflammation noted on previous US, now that this inflammation seems to have resolved. Chest pain 10/09/2018 Overview (02/05/2024): Last Assessment & Plan: Seems most likely related to inflammation, whether of chest wall from cough vs deep pleural tissues related to underlying infections or inflammatory condition. I explained that this does seem separate from the breast pain she was having and she agrees. She had EKG in the office which was NSR. She will have a repeat CXR to see if any consolidation has formed since last in August. She will continue NSAIDs for possible inflammation in the meantime and if all negative and not resolving, she will follow up with her PCP. Do not suspect PE due to chronicity and mild symptoms with no associated SOB, hypoxia, or abnormalities on EKG. She was given precautions for which to seek emergency treatment. Cough 10/09/2018 Overview (02/05/2024): Last Assessment & Plan: Will repeat CXR. Will have pt follow up with PCP. Unclear if history of positive PPD is related. She had been treated in the past per notes. Granuloma reported was not noted on more recent CXR. 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/06/2018 H/O mastectomy 10/04/2016 Malignant neoplasm of overla pping sites of left female breast 10/04/2016 Varicose veins of both lower extremities with pa in 12/25/2015 Palpitations 01/26/2015 Hearing loss 11/25/2013 DCIS (ductal carcinoma in situ) of breast 2012 Overview (02/05/2024): Left mastectomy; 05/18/13; ER positive; on tamoxifen Vaginal atrophy 02/24/2012 Anxiety 12/31/2010 Depression 12/31/2010 Iron deficiency anemia 04/30/2005 Encounters Date Type Department Care Team Description 01/18/2025 3:45 PM EDT Office Visit Adult Medicine [address] [phone] Cody Roque MD Mixed hyperlipidemia (Primary Dx); Prediabetes; Recurrent UTI; Screening for colorectal cancer 12/06/2024 1:30 PM EDT Procedure visit [facility] [address] [place] [address] Deneen Ochoa, Papanicolaou smear of cervix with low risk human papillomavirus (HPV) DNA test positive (Primary Dx) from Last 3 Months Immunizations Immunization Administration Dates Next Due Td Tetanus diptheria (Tdvax) 7yo and older 02/04 Td, Unspecified 09/05/2004 Tdap Tetanus diptheria acell ular pertussis (Boostrix; Adacel) 7yo and older 11/25/2013 Surgical History Surgery Date Site/Laterality Comments OTHER SURGICAL HISTORY 01/2013 PROCEDURE: HISTORICAL COMPLETE UNILATERAL MASTECTOMY; COMMENT: left SECTION PROCEDURE: HISTORICAL DELIVERY; COMMENT: x3 FOOT SURGERY PROCEDURE: HISTORICAL FOOT SURGERY; COMMENT: bilateral bunionectomy BREAST BIOPSY 2012 Left PROCEDURE: BX BREAST; PERC NEEDLE CORE W/IMAG GUID BREAST RECONSTRUCTION 06/14/14 PROCEDURE: BREAST RECONSTRUCTION; COMMENT: s/p breast cancer with revision 2014 BREAST SURGERY PROCEDURE: NH UNLISTED PROCEDURE BREAST; COMMENT: MAST ON LT -IMPLANT PLCED ON RT. OTHER SURGICAL HISTORY 08/2016 PROCEDURE: NH ANES CARDIAC ELECTROPHYSIOL STDY W/RF ABLATION CERVICAL BIOPSY W/ LOOP ELECTRODE EXCISION 08/27/2019 PROCEDURE: NH CONIZATION CERVIX W/WO D&C RPR ELTRD EXC; COMMENT: persistent cervical dysplasia Medical History Medical History Date Comments Depressive disorder, not els ewhere classified 04/30/2005 DX:Depressive disorder, not elsewhere classified Screening examination for pu lmonary tuberculosis 04/30/2005 DX:Screening examination for pulmonary tuberculosis Fracture of wrist -2004 DX:Fracture of wrist; COMMENT: leftt, casted Palpitations 01/26/2015 DX:Palpitations Personal history of malignan t neoplasm of breast 2012 DX:Personal history of malig nant neoplasm of breast; COMMENT: lt Mild cervical dysplasia 2019 JIMMIE 1, h ad LEEP procedure Family History Medical History Relation Name Comments Breast cancer Aunt Colon cancer Aunt Arthritis Paternal Grandmother Leukemia Uncle Ovarian cancer Neg Hx Uterine cancer Neg Hx Relation Name Status Comments Aunt Brother 1 Alive Brother 2 Alive Brother 3 Alive Father stroke Mother Alive Paternal Grandmother Sister 1 Alive Sister 2 Alive Uncle Social History Tobacco Use Types Packs/Day Years Used Date Smoking Tobacco: Former Smokeless Tobacco: Never Tobacco Cessation:Counseling Given: Not Answered Alcohol Use Standard Drinks/Week Comments Yes 0 (1 standard drink = 0.6 oz pur e alcohol) wine Housing Instability Answer Date Recorde d Are you worried that in the next 2 months you may not have stable housing? No 10/27/2024 Food Access & Nutrition Answer Date Rec orded Do you have access to a vari ety of food including fruits and vegetables? Yes 10/27/2024 Access to Healthcare Answer Date Record ed Within the last 3 months, ho w many times did you visit the emergency department for your medical care? 0 10/27/2024 Health Literacy Answer Date Recorded How often do you need to hav e someone help you when you read instructions, pamphlets, or other written material from your doctor or pharmacy? Never 10/27/2024 Caregiver: How often do you need to have someone help you when you read instructions, pamphlets, or other written material from your doctor or pharmacy? Not on file 10/27/2024 Financial Risk Answer Date Recorded How hard is it for you to pa y for the very basics like food, housing, medical care, and air conditioning / heating? Not very hard 10/27/2024 Transportation Answer Date Recorded Has the lack of transportati on kept you from meetings, work, or from getting things needed for daily living? No Has the lack of transportati on kept you from medical appointments or from getting medications? No 10/27/2024 Social Isolation Answer Date Recorded How often do you feel lonely or isolated from th ose around you? Rarely 10/27/2024 Food Risk Answer Date Recorded Within the past 12 months we worried whether our food would run out before we got money to buy more. Never true 10/27/2024 Within the past 12 months th e food we bought just didn't last and we didn't have money to get more. Never true 10/27/2024 Dependent Care Answer Date Recorded Do you need help finding or paying for care for your loved ones. For example, child development instructor or elderly care for an older adult? No 10/27/2024 Education Answer Date Recorded Do you think completing more education or training, like finishing a GED, going to college, or learning a trade, would be helpful for you? N/A 10/27/2024 Employment and Income Answer Date Recor ded During the last four weeks, have you been actively looking for work? No 10/27/2024 Living Situation Answer Date Recorded What is your living situation? Unrecognized valu e 10/27/2024 Comments No Sex and Gender Information Value Date Recorded Sex Assigned at Not on file Legal Sex Female 3:19 AM EST Gender Identity Not on file Sexual Orientation Not on file Obstetrics History * This document contains information received from the source organization and may not represent a complete record from that organization. Para Term AB IAB SAB Ectopic Multiple Livin g Live Births 4 3 3 0 0 0 3 3 Date Outcome GA Total Labor Labor/2nd/3rd Weight Sex Type Anes PTL Sarai A1 A5 Name Clin Term CS-Un spec Living Term CS-Un spec Living Term CS-Un spec Living Last Filed Vital Signs Vital Sign Reading Time Taken Comments Blood Pressure 128/74 01/18/2025 3:57 PM EDT Pulse 76 01/18/2025 3:57 PM EDT Temperature 36.4 C (97.5 F) 01/18/2025 3:57 PM EDT Respiratory Rate 16 01/18/2025 3:57 PM EDT Oxygen Saturation 98% 01/18/2025 3:57 PM EDT Inhaled Oxygen Concentration - - Weight 68.5 kg (151 lb) 01/18/2025 3:57 PM EDT Height 157.5 cm (5' 2 ) 01/18/2025 3:57 PM EDT Body Mass Index 27.62 01/18/2025 3:57 PM EDT Plan of Treatment Upcoming Encounters Date Type Department Care Team (Late st Contact Info) Description 07/22/2025 4:00 PM EDT Office Visit Adult Medicine [address] [phone] Cody Roque MD [address] [place] [address] Health Maintenance Due Date Last Done Comments Pneumococcal Vaccine: 50+ Years (1 of 2 - PCV) 08/19/1979 Zoster Vaccines (1 of 2) 08/19/1979 COVID-19 Vaccine (3 - Moderna risk series) 08/16/2020 07/19/2020, 06/21/2020 Colorectal Cancer Screening: Stool Based Tests (FOBT/FIT) 02/24/2022 HIV Screening 02/24/2022 Hepatitis C Screening 02/24/2022 Influenza Vaccine (#1) 2024 Social Influencers of Health Screening 10/27/2025 10/27/2024 Breast Cancer Screening 04/19/2026 04/19/19 25, 10/27/2018, 02/07/2018, Additional history exists Cervical Cancer Screening: HPV 06/16/2029 06/16/2024, 06/16/2024 Cholesterol Screening (Lipid Panel) 10/26/2029 10/26/2024 DTaP,Tdap,and Td Vaccines (4 - Td or Tdap) 02/04/2034 02/05/2024, 11/25/2013, 09/05/2004 RSV Immunization Adult Patients (1 - 1-dose 75+ series) 08/19/2035 Depression Screening Completed 11/29/2024 HIB Vaccines Aged Out No longer eligi ble based on patient's age to complete this topic HPV Vaccines Aged Out No longer eligi ble based on patient's age to complete this topic Hepatitis A Vaccines Aged Out No long er eligible based on patient's age to complete this topic Hepatitis B Vaccines Aged Out No long er eligible based on patient's age to complete this topic IPV Vaccines Aged Out No longer eligi ble based on patient's age to complete this topic MMR Vaccines Aged Out No longer eligi ble based on patient's age to complete this topic Meningococcal ACWY Vaccine Aged Out N o longer eligible based on patient's age to complete this topic Meningococcal B Vaccine Aged Out No l onger eligible based on patient's age to complete this topic RSV Immunization Patients Under 20 months Aged Out No longer eligible based on patient's age to complete this topic Varicella Vaccines Aged Out No longer eligible based on patient's age to complete this topic Procedures Procedure Name Priority Date/Time Associated Diagnosis Comments NH COLPOSCOPY CERVIX Routine 12/06/2024 1:43 PM EDT Papanicolaou smear of cervix with low risk human papillomavirus (HPV) DNA test positive LIPID PANEL WITH REFLEX TO DIRECT LDL Routine 10/26/2024 8:18 AM EDT Adult general medical examination HPV WITH REFLEX GENOTYPE Routine 06/16/2024 4:26 PM EDT Encounter for gynecological examination without abnormal finding MG MAMMO DIGITAL SCREENING W [place] RIGHT Routine 04/19/2024 3:58 PM EST Encounter for screening mammogram for malignant neoplasm of breast from Last 3 Months or Most Recently Relevant to Health Maintenance Results * NH COLPOSCOPY CERVIX (12/06/2024 1:43 PM EDT) Deneen Sandoval DO - 12/06/2024 1:43 PM EDT Deneen Ochoa DO 12/06/2024 1:45 PM Colposcopy only Indication: POS HR HPV Date/Time: 12/06/2024 1:43 PM Performed by: Deneen Ochoa DO Authorized by: Deneen Ochoa DO Informed Consent: Relevant images/test results available and reviewed: yes Health status cleared: yes Procedure/treatment, purpose, treatment alternatives, risks/potential complications and benefits explained: yes Risk/complications/benefits details: Bleeding, discomfort, inadequate sample Patient questions answered: yes Patient agrees, verbalizes understanding, and wants to proceed: yes Consent given by: Patient Informed consent discussion completed by Physician/DAPHNE with patient: Written; patient signed and dated; copy to patient Pre-procedure: Negative urine test: Not indicated Prepped with: acetic acid Procedure: [place] speculum was placed in the vagina: yes Endometrial biopsy performed: no Post-procedure: Findings comment: Atrophic cervix with no appreciable abnormality Impression: normal appearance Colposcopy satisfactory: yes Patient tolerance of procedure: Patient tolerated the procedure well with no immediate complications Comments: Advised coconut oil for moisture and lubrication given personal h/o breast CA Deneen Ochoa DO IN CLINIC/BEDSIDE ORDERABLES Final Result * (ABNORMAL) Lipid panel with reflex to direct LDL (10/26/2024 8:18 AM EDT) Cholesterol 210(H) 0 - 200 mg/dL LAB CHEMISTRY METHOD 10/26/2024 12:00 PM EDT [facility] Triglycerides 74 0 - 150 mg/dL LAB CHEMISTRY METHOD 10/26/2024 12:00 PM EDT [facility] HDL 77 >=40 mg/dL LAB CHEMISTRY METHOD 10/26/2024 12:00 PM EDT [facility] LDL Calculated 118(H) 0 - 100 mg/dL LAB CHEMISTRY METHOD 10/26/2024 12:00 PM EDT [facility] Comment:Estimated LDL Calcul ated using equation: Total cholesterol - HDL cholesterol - (Triglycerides/5) VLDL Cholesterol Denilson 14.8 mg/dL LAB CHEMISTRY METHOD 10/26/2024 12:00 PM EDT [facility] Non HDL Chol. (LDL+VLDL) 133 <145 mg/dL LAB CHEMISTRY METHOD 10/26/2024 12:00 PM EDT [facility] Chol/HDL Ratio 2.7 0.0 - 4.4 LAB CHEMISTRY METHOD 10/26/2024 12:00 PM EDT [facility] Blood Venous blood specimen / Unknown Venipuncture / Unknown 10/26/2024 8:18 AM EDT 10/26/2024 8:18 AM EDT Yane WAGONER LAB BLOOD ORDERABLES Fin al Result [facility] [address] [place] [address], * (ABNORMAL) HPV with reflex genotype (06/16/2024 4:26 PM EDT) HPV Positive( A) Negative LAB MICROBIOLOGY METHOD 06/21/2024 2:15 PM EDT [facility] Brushing/Spatula Cervix uteri structure / Unknown 06/16/2024 4:26 PM EDT 06/18/2024 7:23 AM EDT Marva Chowdhury CNM LAB MOLECULAR DIAGNOSTICS YANNI CESPEDES Final Result [facility] [address] [place] [address], [place] [phone] * MG Mammo Digital Screening w [place] Right (04/19/2024 3:58 PM EST) Anatomical Region Laterality Modality Breast Right Mammography 04/21/2024 9:3 2 AM EST Impressions 04/21/2024 9:43 AM EST There has been a long interval since previous mammography. There is no convincing evidence of malignancy. There is calcification along the surface of the implant. ASSESSMENT: BI-RADS 2: BENIGN RECOMMENDATION(S): 1: Routine screening mammogram RIGHT in 1 year. -------- FINAL REPORT -------- Dictated By: Cy Julian Dictated Date: 04/21/2024 09:32 ET Assigned Physician: Cy Julian Reviewed and Electronically Signed By: Cy Julian Signed Date: 04/21/2024 09:43 ET Workstation ID: [id number] Transcribed By: Self Edit Transcribed Date: 04/21/2024 09:32 ET Narrative 04/21/2024 9:43 AM EST EXAM: SCREENING MAMMOGRAPHY, UNILATERAL RIGHT HISTORY: SCREENING. Personal history of left breast cancer. Post left mastectomy COMPARISON: Right mammography 10/27/2018, 02/07/2018 TECHNIQUE: Digital CC and MLO projections of the right breast. ADDITIONAL IMAGING: Tomosynthesis of the right breast in multiple projections using implant displacement. Computer-aided detection was employed with the [employer] AI 3-D. TISSUE DENSITY: There are scattered areas of fibroglandular density. (BI-RADS category B) FINDINGS: RIGHT BREAST: There are islands of fibroglandular tissue medially and laterally on the standard projections. These resolved with implant displacement. There is calcification along the surface of the implant which may be prepectoral. Procedure Note Cy Julian MD - 04/21/2024 EXAM: SCREENING MAMMOGRAPHY, UNILATERAL RIGHT HISTORY: SCREENING. Personal history of left breast cancer. Post leftmastectomy COMPARISON: Right mammography 10/27/2018, 02/07/2018 TECHNIQUE: Digital CC and MLO projections of the right breast. ADDITIONAL IMAGING: Tomosynthesis of the right breast in multipleprojections using implant displacement. Computer-aided detection was employed with the iCAD profound AI 3-D. TISSUE DENSITY: There are scattered areas of fibroglandular density.(BI-RADS category B) FINDINGS: RIGHT BREAST: There are islands of fibroglandular tissue medially and laterally on thestandard projections. These resolved with implant displacement. There is calcification along the surface of the implant which may beprepectoral. IMPRESSION: There has been a long interval since previous mammography. There is no convincing evidence of malignancy. There is calcification along the surface of the implant. ASSESSMENT: BI-RADS 2: BENIGN RECOMMENDATION(S): 1: Routine screening mammogram RIGHT in 1 year. -------- FINAL REPORT -------- Dictated By: Cy Julian Dictated Date: 04/21/2024 09:32 ET Assigned Physician: Cy Julian Reviewed and Electronically Signed By: Cy Julian Signed Date: 04/21/2024 09:43 ET Workstation ID: [id number] Transcribed By: Self Edit Transcribed Date: 04/21/2024 09:32 ET [facility] BI PROCEDURES Final Result from Last 3 Months or Most Recently Relevant to Health Maintenance Insurance [facility] Care Teams Surplus Property Disposal Agent Relationship Specialty Start Date End Date Cody Roque MD [address] [place] [address] PCP - General Internal Medicine 06/14/21
--- OUTSIDE RECORDS SUMMARY | 2025-03-03 23:02 | XMS_ITS | Clinical Summary ---
Author Organization [facility] Prior to 08/21/[address] [place] [address] Care Team Providers Care Warp Hand Name Role Phone Nithya Parry MD Primary Care Provider [phone]- [phone] Allergies No known active allergies Medications Medication Sig Dispensed Refills Start Date End Date Status CALCIUM-VITAMIN D PO Take 1,200 mg by mouth daily. 0 Active aspirin 81 MG tablet Take 81 mg by mouth daily. 0 Active Multiple Vitamins-Minerals (MULTIVITAMIN PO) Take by mouth daily. 0 Active tamoxifen (NOLVADEX) 20 MG tablet Take 1 tablet (20 mg total) by mouth daily. 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 Malignant neoplasm of overla pping sites of left female breast 10/04/2016 H/O mastectomy 10/04/2016 Use of tamoxifen (Nolvadex) 10/04/2016 Family History Medical History Relation Name Comments Cancer Maternal Aunt colon No Sig Med Hx Mother Relation Name Status Comments Father Maternal Aunt Mother Social History Tobacco Use Types Packs/Day Years Used Date Smoking Tobacco: Never Smokeless Tobacco: Never Alcohol Use Standard Drinks/Week Comments Yes 7 (1 standard drink = 0.6 oz pur e alcohol) Sex and Gender Information Value Date Recorded Sex Assigned at Not on file Gender Identity Not on file Sexual Orientation Not on file Last Filed Vital Signs Vital Sign Reading Time Taken Comments Blood Pressure 132/69 02/06/2018 11:13 AM EST Pulse 96 02/06/2018 11:13 AM EST Temperature 36.6 C (97.9 F) 02/06/2018 11:13 AM EST Respiratory Rate - - Oxygen Saturation - - Inhaled Oxygen Concentration - - Weight 63 kg (139 lb) 02/06/2018 11:13 AM EST Height 157.5 cm (5' 2 ) 02/06/2018 11:13 AM EST Body Mass Index 25.42 02/06/2018 11:13 AM EST Plan of Treatment Health Maintenance Due Date Last Done Comments Hepatitis C Screening 1960 COVID-19 Vaccine (#1) 1965 Pneumococcal Vaccine (1 of 2 - PCV) 1966 Pneumococcal Vaccine (1 of 2 - PCV) 1966 Depression Screening 1972 Preventative Health Evaluation 1978 Shingrix-Zoster Vaccine (1 of 2) 08/19/1979 Cervical Cancer Screening (P ap Smear) 1981 Colon Cancer Screening (Colonoscopy) 2005 Breast Cancer Screening (Mammogram) 2010 DTap / Tdap / Td (2 - Td or Tdap) 11/26/2023 014 Influenza Vaccine (#1) 2024 RSV Adult > 60+ Yrs or Pregn ant (1 - 1-dose 75+ series) 08/19/2035 Hepatitis B Vaccines Aged Out No long er eligible based on patient's age to complete this topic RSV Ped < 20 months Aged Out No longe r eligible based on patient's age to complete this topic Care Teams Warp Hand Relationship Specialty Start Date End Date Nithya Parry MD PCP - General Internal Medicine 09/23/16
--- OUTSIDE RECORDS SUMMARY | 2025-03-03 23:02 | XMS_ITS | Clinical Summary ---
Author Organization [facility] Address [address] [place] [address] Phone Care Team Providers Care [employer] Special Ed Teacher Name Role Phone Unknown, Unknown Primary Care Provider Genia mesa Social History Tobacco Use Types Packs/Day Years Used Date Smoking Tobacco: Never Assessed Education Answer Date Recorded Are you interested in more education? Not on ashley e 07/19/2022 Are you concerned about learning? Not on file 07/19/2022 No 07/19/2022 No 07/19/2022 Digital Access Answer Date Recorded No 08/19/2022 No 08/19/2022 No 08/19/2022 Reliable internet access at home? Not on file 08/19/2022 Device with a working camera? Not on file Comments Unknown Sex and Gender Information Value Date Recorded Sex Assigned at Not on file Legal Sex Female 2:38 PM EST Gender Identity Not on file Sexual Orientation Not on file Plan of Treatment Health Maintenance Due Date Last Done Comments LIPID PANEL 1960 DEPRESSION SCREENING 1972 SMOKING Hx and SMOKELESS TOBACCO SCREENING 1973 HEPATITIS C SCREENING 1978 HIV ONE-TIME SCREENING (18-6 5 YEARS) 1978 PAP SMEAR 1981 MAMMOGRAM 2000 COLOGUARD 2005 COLONOSCOPY 2005 COLORECTAL CANCER SCREENING 2005 FIT TEST 2005 FOBT 2005 SIGMOIDOSCOPY 2005 VIRTUAL COLONOSCOPY 2005 PNEUMOCOCCAL VACCINES (50+ years) (1 of 1 - PCV) 2010 ZOSTER VACCINES (1 of 2) 2010 Adult Td,Tdap Booster 11/26/2023 11/25/2013 , 09/05/2004 INFLUENZA VACCINE (#1) 2024 COVID-19 VACCINE (2 - 2024-2 6 season) 2024 06/21/2020 RSV VACCINE (1 - 1-dose 75+ series) 08/19/2035 HEPATITIS A VACCINES Aged Out No long er eligible based on patient's age to complete this topic HIB VACCINES Aged Out No longer eligi ble based on patient's age to complete this topic MENINGOCOCCAL VACCINES (ACWY) Aged Out No longer eligible based on patient's age to complete this topic MENINGOCOCCAL VACCINES (B) Aged Out N o longer eligible based on patient's age to complete this topic Medical Devices Not on file Care Teams [employer] Special [employer] Teacher Relationship Specialty Start Date End Date Unknown, Unknown, PCP - General 07/29/14 Additional Source Comments The information contained in this document represents components of the legal health record. It is not the complete legal health record.[facility]
== END 2025-03-03 16:17 | disposition home or self-care (01) ==
PROVIDERS: Visit Provider Physician Assistant Medical
DX: Z13.9 Encounter for screening, unspecified (principal); R05.1 Acute cough

== ENCOUNTER 2025-03-03 15:31 | Outpatient (REF) | payer OTHER, SELFPAY | END 2025-03-03 15:32 | disposition home or self-care (01) | LOC: HO.LNP 15:31 | PROVIDERS: Visit Provider Physician Assistant Medical | DX: R05.1 Acute cough (principal); R09.89 Other specified symptoms and signs involving the circulatory and respiratory systems | CPT/HCPCS: 87880 ==

== ENCOUNTER 2025-03-03 16:15 | Outpatient (REF) | payer OTHER, SELFPAY ==
--- NOTE | ~2025-03-03 | XR_ITS ---
CLINICAL HISTORY: cough 2 view chest x-ray. Comparison: None provided Findings: Heart size is normal. No consolidation or effusion. No acute fracture. Multilevel degenerative changes of the spine. The visualized upper abdomen is unremarkable. Impression: No acute cardiopulmonary process. This document has been electronically signed by: Aditi Aguillon MD on 03/03/2025 21:44:52
== END 2025-03-03 16:16 | disposition home or self-care (01) ==
LOC: HO.HMGCX 16:15
PROVIDERS: Visit Provider Physician Assistant Medical
DX: R05.9 Cough, unspecified (principal)
CPT/HCPCS: 71046

== ENCOUNTER → 2025-03-03 16:18 | Outpatient (BNV) | payer OTHER, SELFPAY | PROVIDERS: Visit Provider Student in an Organized Health Care Education/Training Program | DX: R05.9 Cough, unspecified (principal) | CPT/HCPCS: 71046 ==